=== PATIENT | female | born 2000 | race Caucasian/White ===

== ENCOUNTER 2020-04-03 03:24 | Emergency (ER) | payer BC ==
[~2020-04-03] VITALS: Ht 157.5 cm; Wt 54.5 kg
[2020-04-03 03:30] VITALS: BP 125/89; TEMP 97.4
[2020-04-03 04:08] LABS: STREP SCREEN NEGATIVE
[2020-04-03] MEDS ORDERED: MEDROL 4MG DOSPA4 MG PO (04:32)
[2020-04-03] MEDS ORDERED: AMOXICILLIN 50500 MG PO (04:32)
[2020-04-03 04:55] VITALS: PULSE 83
== END 2020-04-03 04:55 | disposition home or self-care (01) ==
LOC: COL.ER 03:24
PROVIDERS: Family Medicine
DX: J02.9 Acute pharyngitis, unspecified (principal); R07.1 Chest pain on breathing